=== PATIENT | male | born 1990 | race Caucasian/White ===

== ENCOUNTER 2025-03-01 08:08 | Emergency (ER) | payer OTHER, SELFPAY ==
--- OUTSIDE RECORDS SUMMARY | 2025-03-01 08:11 | XMS_ITS | Encounter Summary ---
Author Organization [facility] Address [address] [place] [address]. [place] [address] Care Team Providers Care Vice Investigator Name Role Phone Daria Lopez PA-C Primary Care Pr ovider Daria Lopez PA-C Unavailable Yina Gonzalez MD Unavailable Francheska Romero NP Primary Care Provider Francheska Villa NP Unavailable Unavailable Daria Lopez PA-C Unavailable Daria Lopez PA-C Primary Care Pr ovider Encounter Details Date Type Department Care Team (Late st Contact Info) Description 02/22/2022 Telephone [facility] [address] [place] [address] Daria Lopez PA-C [address] [place] [address] Social History Tobacco Use Types Packs/Day Years Used Date Smoking Tobacco: Former Cigarettes 0.3 2 2 019 - 2020 Smokeless Tobacco: Current Comments:2 cig a day Alcohol Use Standard Drinks/Week Comments Yes 0 (1 standard drink = 0.6 oz pure alcohol) one or two drinks 3-4 times per week Social Connection and Isolation Panel [NHANES] A nswer Date Recorded Frequency of Communication with Friends and Fami ly Not on file 12/29/2024 How often do you get together with friends or re latives? Once a week 12/29/2024 Attends [employer] Services Not on file 12/29 Active Member of Clubs or Organizations Not on f ile 12/29/2024 Attends Club or Organization Meetings Not on helen e 12/29/2024 Marital Status Not on file 12/29/2024 AUDIT-C Answer Date Recorded Q1: How often do you have a drink containing alc ohol? Monthly or less 08/02/2022 Q2: How many drinks containi ng alcohol do you have on a typical day when you are drinking? Patient declined 08/02/2022 Q3: How often do you have si x or more drinks on one occasion? Never 08/02/2022 PHQ-2 Answer Date Recorded PHQ-2 Score 0 12/29/2024 [facility] - Occupational Stress Questionnaire Answer Date Recorded Do you feel stress - tense, restless, nervous, or anxious, or unable to sleep at night because your mind is troubled all the time - these days? Only a little 12/29/2024 Exercise Vital Sign Answer Date Recorde d On average, how many days pe r week do you engage in moderate to strenuous exercise (like a brisk walk)? 2 days 12/29/2024 On average, how many minutes do you engage in exercise at this level? 20 min 12/29/2024 Adolescent Education Answer Date Record ed Getting School Help Needed Not on file 08/24 Food Insecurity Answer Date Recorded Within the past 12 months, d id you worry that your food would run out before you got money to buy more? No 12/29/2024 Within the past 12 months, d id the food you bought just not last and you didn t have money to get more? No 12/29/2024 Housing Stability Answer Date Recorded Do you have housing? (Housin g is defined as stable permanent housing and does not include staying ouside in a car, in a tent, in an abandoned building, in an overnight skilled nursing, or couch-surfing.) No 12/29/2024 Are you worried about losing your housing? No 12/29/2024 Financial Resource Strain Answer Date R ecorded Within the past 12 months, h ave you or your family members you live with been unable to get utilities (heat, electricity) when it was really needed? No 12/29/2024 Transportation Needs Answer Date Record ed Within the past 12 months, h as lack of transportation kept you from medical appointments, getting your medicines, non-medical meetings or appointments, work, or from getting things that you need? No 12/29/2024 Interpersonal Safety Answer Date Record ed Do you feel physically and e motionally safe where you currently live? Yes 12/29/2024 Within the past 12 months, h ave you been hit, slapped, kicked or otherwise physically hurt by someone? No 12/29/2024 Within the past 12 months, h ave you been humiliated or emotionally abused in other ways by your partner or ex-partner? No 12/29/2024 Sex and Gender Information Value Date Recorded Sex Assigned at Male 02/26/2022 3:34 PM CDT Legal Sex Male 3:15 AM JEWELRY CASTING MODEL MAKER Gender Identity Male 02/26/2022 3:34 PM CDT Sexual Orientation Straight 02/26/2022 3: 34 PM CDT COVID-19 Exposure Response Date Recorded In the last 10 days, have yo u been in contact with someone who was confirmed or suspected to have Coronavirus/COVID-19? No / Unsure 07/24/2023 7:53 AM CDT documented as of this encounter Plan of Treatment Upcoming Encounters Date Type Department Care Team (Late st Contact Info) Description 03/29/2025 10:30 AM CDT Office Visit [facility] [id number] [place] [phone] Daria Lopez PA-C [address] [place] [address] documented as of this encounter Visit Diagnoses Not on filedocumented in this encounter Care Teams Vice Investigator Relationship Specialty Start Date End Date Daria Lopez PA-C [address] [place] [address] PCP - General Physician Metalizing Machine Operator 06/13/14 11/30/23 Francheska Romero NP [address] [place] [address] PCP - General 12/01/23 02/26/24 Daria Lopez PA-C [address] [place] [address] PCP - General 09/21/24 Daria Lopez PA-C [address] [place] [address] Assigned PCP 07/13/17 01/01/24 Yina Gonzalez MD [address] [place] [address] Assigned Gastroenterology Provider 03/24/22 09/19/23 Francheska Romero NP Assigned PCP 01/02/24 03/01/24 Daria Lopez PA-C [address] [place] [address] Assigned PCP 03/02/24 documented as of this encounter
--- OUTSIDE RECORDS SUMMARY | 2025-03-01 08:11 | XMS_ITS | Clinical Summary ---
Author Organization [facility] Address [address] [place] [address] Care Team Providers Care Bicycle Taxi Driver Name Role Phone Daria Lopez PA-C Unavailable Daria Lopez PA-C Primary Care Pr ovider Allergies Active Allergy Reactions Criticality Noted Date Comments No Known Drug Allergy 10/14/2005 Medications amphetamine-dextro amphetamine (ADDERALL) 10 MG tabletIndications: Attention deficit hyperactivity disorder (ADHD), predominantly inattentive type Take 1 tablet (10 mg) by mouth 2 times daily 60 tablet 4 Active amphetamine-dextro amphetamine (ADDERALL) 10 MG tabletIndications: Attention deficit hyperactivity disorder (ADHD), predominantly inattentive type Take 1 tablet (10 mg) by mouth 2 times daily. 60 tablet 4 Active amphetamine-dextro amphetamine (ADDERALL) 10 MG tabletIndications: Attention deficit hyperactivity disorder (ADHD), predominantly inattentive type Take 1 tablet (10 mg) by mouth 2 times daily. 60 tablet 5 03/29/20 25 Active amphetamine-dextro amphetamine (ADDERALL) 10 MG tabletIndications: Attention deficit hyperactivity disorder (ADHD), predominantly inattentive type Take 1 tablet (10 mg) by mouth 2 times daily. 60 tablet 5 02/28/20 25 Active Problems Problem Noted Date Diagnosed Date Throat pain 03/17/2020 ADD (attention deficit disorder) 02/10/2014 Anxiety 02/13/2013 Genital warts 07/22/2008 Family history of diabetes mellitus (DM) Tobacco use disorder Resolved Problems Problem Noted Date Diagnosed Date Resolved Date Smoker 12/30/2012 03/17/2020 CARDIOVASCULAR SCREENING; LD L GOAL LESS THAN 160 09/09/2010 03/17/2020 Encounters Date Type Department Care Team Description 12/29/2024 10:30 AM BEAUTY SHOP MANAGER Office Visit [address] [phone] Daria Lopez PA-C Routine general medical examination at a health care facility (Primary Dx); Attention deficit hyperactivity disorder (ADHD), predominantly inattentive type; Essential hypertension 12/29/2024 Travel 12/28/2024 Travel from Last 3 Months Immunizations Name Administration Dates Next Due HepB 07/13/2004,12/06/2003,07/02/2001 Influenza Vaccine >6 months,quad, PF 09/12/2014 MMR (MMRII) 07/02/2001 TDAP Vaccine (Adacel) 07/07/2018,08/24/2008 Family History Medical History Relation Comments Unknown/Adopted Father Have a real fath er but don't know biological Prostate Cancer Maternal Grandfather Diabetes Maternal Grandmother Hypertension Mother Always Diabetes Other Cancer - colorectal No family hx of Relation Status Comments Brother Alive Father Other Maternal Grandfather Alive Maternal Grandmother Alive Mother Alive Other Paternal Grandfather Alive Paternal Grandmother Alive Social History Tobacco Use Types Packs/Day Years Used Date Smoking Tobacco: Former Cigarettes 0 06/29/2009 - 12/29/2020 Passive Smoke Exposure: Past Smokeless Tobacco: Never Tobacco Cessation:Counseling Given: Not Answered Alcohol Use Standard Drinks/Week Comments Not Currently 0 (1 standard drink = 0.6 oz pur e alcohol) Maybe once a month Social Connection and Isolation Panel [NHANES] A nswer Date Recorded Frequency of Communication with Friends and Fami ly Not on file 12/29/2024 How often do you get together with friends or re latives? Once a week 12/29/2024 Attends [employer] Services Not on file 12/29 Active Member [...] Answer Date Recorded PHQ-2 Score 0 12/29/2024 [facility] - Occupational [...] Answer Date Recorded Do you have housing? (Linda g is defined as stable permanent housing and does not include staying ouside in a car, in a tent, in an abandoned building, in an overnight alf, or couch-surfing.) No 12/29/2024 Are you worried [...] PM CDT Legal Sex Male 3:15 AM BEAUTY SHOP MANAGER Gender Identity Male 02/26/2022 3:34 PM CDT Sexual Orientation Straight 02/26/2022 3: 34 PM CDT Last Filed Vital Signs Vital Sign Reading Time Taken Comments Blood Pressure 125/78 12/29/2024 10:19 AM BEAUTY SHOP MANAGER Pulse 108 12/29/2024 10:05 AM BEAUTY SHOP MANAGER Temperature 36.6 C (97.9 F) 12/29/2024 10:05 AM BEAUTY SHOP MANAGER Respiratory Rate 12 12/29/2024 10:05 AM BEAUTY SHOP MANAGER Oxygen Saturation 99% 12/29/2024 10:05 AM BEAUTY SHOP MANAGER Inhaled Oxygen Concentration - - Weight 70.8 kg (156 lb) 12/29/2024 10:05 AM BEAUTY SHOP MANAGER Height 181.6 cm (5' 11.5) 12/29/2024 10:05 AM Zohreh POSEY Body Mass Index 21.45 12/29/2024 10:05 AM BEAUTY SHOP MANAGER Plan of Treatment Upcoming Encounters Date Type Department Care Team (Late st Contact Info) Description 03/29/2025 10:30 AM CDT Office Visit [facility] [id number] [place] [phone] Daria Lopez PA-C [address] [place] [address] Health Maintenance Due Date Last Done Comments COVID-19 Vaccine ( season) 2024 ANNUAL REVIEW OF HM ORDERS 12/29/202512/29, 07/24/2023, 08/02/2022, Additional history exists BMP 12/29/2025 12/29/2024, 07/11, 08/02/2022, Additional history exists YEARLY PREVENTIVE VISIT 12/29/2025 12/29/19 25, 07/24/2023, 08/02/2022, Additional history exists DIABETES SCREENING 12/29/2027 12/29/2024, 0 07/24/2023, 08/02/2022, Additional history exists DTAP/TDAP/TD IMMUNIZATION (3 - Td or Tdap) 07/07/2028 07/07/2018, 08/24/2008 ADVANCE CARE PLANNING 12/29/2029 12/29/2024, 022 ZOSTER IMMUNIZATION (1 of 2) 2038 HEPATITIS B IMMUNIZATION Completed 004, 12/06/2003, 07/02/2001 HIV SCREENING Completed 02/10/2014, 06/11/2008 INFLUENZA VACCINE Discontinued 09/12/2014 HEPATITIS C SCREENING Completed 02/26/2022, 014 PHQ-2 (once per calendar year) Completed 12/29/2024, 12/08/2023, 07/24/2023, Additional history exists HPV IMMUNIZATION Aged Out No longer e ligible based on patient's age to complete this topic MENINGITIS IMMUNIZATION Aged Out No l onger eligible based on patient's age to complete this topic Pneumococcal Vaccine: Pediatrics (0 to 5 Years) and At-Risk Patients (6 to 49 Years) Aged Out No longer eligible based on patient's age to complete this topic Procedures Procedure Name Priority Date/Time Associated Diagnosis Comments CBC WITH PLATELETS Routine 12/29/2024 10 :42 AM BEAUTY SHOP MANAGER Essential hypertension TSH WITH FREE T4 REFLEX Routine 12/29/2024 10:42 AM BEAUTY SHOP MANAGER Essential hypertension COMPREHENSIVE METABOLIC PANEL Routine 12/29/2024 10:42 AM BEAUTY SHOP MANAGER Essential hypertension LIPID PROFILE Routine 12/29/2024 10:42 AM BEAUTY SHOP MANAGER Essential hypertension HEPATITIS C RNA, QUANTITATIVE BY PCR Routine 02/26/2022 1:26 PM CDT Elevated liver enzymes HIV ANTIGEN ANTIBODY COMBO Routine 02/10/2014 8:05 AM CDT Screening examination for unspecified infectious disease from Last 3 Months or Most Recently Relevant to Health Maintenance Results * TSH with free T4 reflex (12/29/2024 10:42 AM BEAUTY SHOP MANAGER) TSH 1.77 0.30 - 4.20 uIU/mL 12/29/2024 8:29 PM BEAUTY SHOP MANAGER [facility] Blood BLOOD SPECIMEN / Unknown Venipuncture / Unknown 12/29/2024 10:42 AM BEAUTY SHOP MANAGER 12/29/2024 10:42 AM BEAUTY SHOP MANAGER us Daria Lopez PA-C LAB - BLOOD ELVINE NICO Final Result [facility] [address] [facility], [address] [phone] * (ABNORMAL) Lipid Profile (12/29/2024 10:42 AM BEAUTY SHOP MANAGER) Cholesterol 180 <200 mg/dL 12/29/2024 8:29 PM BEAUTY SHOP MANAGER [facility] Triglycerides 62 <150 mg/dL 12/29/2024 8:29 PM BEAUTY SHOP MANAGER [facility] Direct Measure HDL 68 >=40 mg/dL 12/29/2024 8:29 PM BEAUTY SHOP MANAGER [facility] LDL Cholesterol Calculated 100(H) <100 mg/dL 12/29/2024 8:29 PM BEAUTY SHOP MANAGER [facility] Non HDL Cholesterol 112 <130 mg/dL 12/29/2024 8:29 PM BEAUTY SHOP MANAGER [facility] Patient Fasting > 8hrs? Yes 12/29/2024 8:29 PM BEAUTY SHOP MANAGER [facility] Blood BLOOD SPECIMEN / Unknown Venipuncture / Unknown 12/29/2024 10:42 AM BEAUTY SHOP MANAGER 12/29/2024 10:42 AM BEAUTY SHOP MANAGER Narrative [facility] - 12/29/2024 8:29 PM BEAUTY SHOP MANAGER Cholesterol Desirable: < 200 mg/dL Borderline High: 200 - 239 mg/dL High: >= 240 mg/dL Triglycerides Normal: < 150 mg/dL Borderline High: 150 - 199 mg/dL High: 200-499 mg/dL Very High: >= 500 mg/dL Direct Measure HDL Female: >= 50 mg/dL Male: >= 40 mg/dL LDL Cholesterol Desirable: < 100 mg/dL Above Desirable: 100 - 129 mg/dL Borderline High: 130 - 159 mg/dL High: 160 - 189 mg/dL Very High: >= 190 mg/dL Non HDL Cholesterol Desirable: < 130 mg/dL Above Desirable: 130 - 159 mg/dL Borderline High: 160 - 189 mg/dL High: 190 - 219 mg/dL Very High: >= 220 mg/dL Daria Lopez PA-C LAB - BLOOD SEGUNDO WALSH Final Result [facility] [facility] [address] [facility], [address] [phone] * (ABNORMAL) Comprehensive metabolic panel (12/29/2024 10:42 AM BEAUTY SHOP MANAGER) Sodium 138 135 - 145 mmol/L 12/29/2024 8:29 PM BEAUTY SHOP MANAGER [facility] Potassium 4.0 3.4 - 5.3 mmol/L 12/29/2024 8:29 PM BEAUTY SHOP MANAGER [facility] Carbon Dioxide (CO2) 24 22 - 29 mmol/L 12/29/2024 8:29 PM BEAUTY SHOP MANAGER [facility] Anion Gap 13 7 - 15 mmol/L 12/29/2024 8:29 PM BEAUTY SHOP MANAGER [facility] Urea Nitrogen 16.8 6.0 - 20.0 mg/dL 12/29/2024 8:29 PM BEAUTY SHOP MANAGER [facility] Creatinine 0.88 0.67 - 1.17 mg/dL 12/29/2024 8:29 PM BEAUTY SHOP MANAGER [facility] GFR Estimate >90 >60 mL/min/1.7 3m2 12/29/2024 8:29 PM BEAUTY SHOP MANAGER [facility] Comment:eGFR calculated usin 2020 CKD-EPI equation. Calcium 9.5 8.8 - 10.4 mg/dL 12/29/2024 8:29 PM BEAUTY SHOP MANAGER [facility] Chloride 101 98 - 107 mmol/L 12/29/2024 8:29 PM BEAUTY SHOP MANAGER [facility] Glucose 95 70 - 99 mg/dL 12/29/2024 8:29 PM BEAUTY SHOP MANAGER [facility] Alkaline Phosphatase 35(L) 40 - 150 U/L 12/29/2024 8:29 PM BEAUTY SHOP MANAGER [facility] AST 24 0 - 45 U/L 12/29/2024 8:29 PM BEAUTY SHOP MANAGER [facility] ALT 16 0 - 70 U/L 12/29/2024 8:29 PM BEAUTY SHOP MANAGER [facility] Protein Total 7.0 6.4 - 8.3 g/dL 12/29/2024 8:29 PM BEAUTY SHOP MANAGER [facility] Albumin 4.6 3.5 - 5.2 g/dL 12/29/2024 8:29 PM BEAUTY SHOP MANAGER [facility] Bilirubin Total 0.6 <=1.2 mg/dL 12/29/2024 8:29 PM BEAUTY SHOP MANAGER [facility] Patient Fasting > 8hrs? Yes 12/29/2024 8:29 PM BEAUTY SHOP MANAGER [facility] Blood BLOOD SPECIMEN / Unknown Venipuncture / Unknown 12/29/2024 10:42 AM BEAUTY SHOP MANAGER 12/29/2024 10:42 AM BEAUTY SHOP MANAGER us Daria Lopez PA-C LAB - BLOOD ORDE NICO Final Result [facility] [place] [facility] [address] [facility], [address] [phone] * CBC with platelets (12/29/2024 10:42 AM BEAUTY SHOP MANAGER) WBC Count 5.1 4.0 - 11.0 10e3/uL 12/29/2024 10:44 AM BEAUTY SHOP MANAGER [facility] RBC Count 4.74 4.40 - 5.90 10e6/uL 12/29/2024 10:44 AM BEAUTY SHOP MANAGER [facility] Hemoglobin 14.8 13.3 - 17.7 g/dL 12/29/2024 10:44 AM BEAUTY SHOP MANAGER [facility] Hematocrit 42.9 40.0 - 53.0 % 12/29/2024 10:44 AM BEAUTY SHOP MANAGER [facility] MCV 91 78 - 100 fL 12/29/2024 10:44 AM BEAUTY SHOP MANAGER [facility] MCH 31.2 26.5 - 33.0 pg 12/29/2024 10:44 AM BEAUTY SHOP MANAGER [facility] MCHC 34.5 31.5 - 36.5 g/dL 12/29/2024 10:44 AM BEAUTY SHOP MANAGER [facility] RDW 11.7 10.0 - 15.0 % 12/29/2024 10:44 AM BEAUTY SHOP MANAGER [facility] Platelet Count 188 150 - 450 10e3/uL 12/29/2024 10:44 AM BEAUTY SHOP MANAGER [facility] Blood BLOOD SPECIMEN / Unknown Venipuncture / Unknown 12/29/2024 10:42 AM BEAUTY SHOP MANAGER 12/29/2024 10:42 AM BEAUTY SHOP MANAGER us Daria Lopez PA-C LAB - BLOOD ORDE RABEZ Final Result [facility] [address] [facility] (no room number, 1st floor of clinic) [place] [address], [facility] * Hepatitis C RNA, quantitative (02/26/2022 1:26 PM CDT) Pathologist [facility] Hepatitis C RNA IU/mL Not Detected Not Detected IU/mL 02/27/2022 9:40 PM CDT [facility] Blood STRUCTURE OF RIGHT UPPER LIMB / Unknown Venipuncture / Unknown 02/26/2022 1:26 PM CDT 02/26/2022 1:34 PM CDT Narrative [facility] - 02/27/2022 9:40 PM CDT The GRACIA AmpliPrep/GRACIA TaqMan HCV test is a FDA-approved in vitro nucleic acid amplification test for the quantitation of HCV DNA in human plasma (EDTA plasma) or serum using the GRACIA AmpliPrep instrument for automated viral nucleic acid extraction and the GRACIA TaqMan for the automated real-time PCR amplification and detection of viral nucleic acid target. Titer results are reported in International Units/mL (IU/mL) using the 1st WHO International standard for HBV for nucleic acid amplification assays. us Daria Lopez PA-C LAB - BLOOD ORDE RABEZ Final Result [facility] [address] [facility], [address] [place] [address], [facility] [phone] * HIV Antigen Antibody Combo (02/10/2014 8:05 AM CDT) HIV Antigen Antibody Combo Nonreactive HIV-1 p24 Ag & HIV-1/HIV-2 Ab Not Detected NR [facility] Blood specimen (specimen) 02/10/2014 8:05 AM CDT 02/10/2014 12:25 PM CDT us Jarret Snyder MD LAB - BLOOD ORDERABLES Final Result [facility] [address] [place] [address] from Last 3 Months or Most Recently Relevant to Health Maintenance Insurance [employer] Care Teams Bicycle Taxi Driver Relationship Specialty Start Date End Date Daria Lopez PA-C [address] [place], [place] [phone] PCP - General 09/21/24 Daria Lopez PA-C [address] [place], [place] [phone] Assigned PCP 03/02/24
--- OUTSIDE RECORDS SUMMARY | 2025-03-01 08:11 | XMS_ITS | Encounter Summary ---
Author Organization [facility] Address [address] [place] [address] Care Team Providers Care Check Processor Name Role Phone Daria Lopez PA-C Primary Care Pr ovider Daria Lopez PA-C Unavailable Daria Lopez PA-C Unavailable Yina Gonzalez MD Unavailable Francheska Romero NP Primary Care Provider Francheska Villa NP Unavailable Unavailable Daria Lopez PA-C Unavailable Daria Lopez PA-C Primary Care Pr ovider Reason for Visit * Reason Onset Date Comments Refill Request 09/30/2018 amphetamine-dext roamphetamine (ADDERALL) 10 MG per tablet Encounter Details Date Type Department Care Team (Late st Contact Info) Description 09/30/2018 [facility] [address] [place] [address] Daria Lopez PA-C [address] [place] [address] Refill Request (amphetamine-dextroamphe tamine (ADDERALL) 10 MG per tablet) Social History Tobacco Use Types Packs/Day Years Used Date Smoking Tobacco: Some Days Cigarettes Smokeless Tobacco: Current Comments:2 cig a day Alcohol Use Standard Drinks/Week Comments Yes 0 (1 standard drink = 0.6 oz pure alcohol) one or two drinks 3-4 times per week Sex and Gender Information Value Date Recorded Sex Assigned at Male 02/26/2022 3:34 PM CDT Legal Sex Male 3:15 AM WILDLIFE CONSERVATION PROFESSOR Gender Identity Male 02/26/2022 3:34 PM CDT Sexual Orientation Straight 02/26/2022 3: 34 PM CDT documented as of this encounter Miscellaneous Notes * Telephone Encounter - Melia Adame CMA - 10/02/2018 8:35 AM WILDLIFE CONSERVATION PROFESSOR Left message on phone - rx is ready for pickup Melia Adame CMA LIFE CONSERVATION PROFESSOR * Telephone Encounter - Anahi Sloan RN - 09/30/2018 3:33 PM CST RX monitoring program ([place]) reviewed: OUTBOARD MOTORBOAT RIGGER reviewed- no concerns Pt filled 30 day supply on 09/14/18 [place] profile: [email or web address] LIFE CONSERVATION PROFESSOR * Telephone Encounter - Susy Villa - 09/30/2018 3:21 PM CST Controlled Substance Refill Request for amphetamine-dextroamphetamine (ADDERALL) 10 MG per tablet Problem List Complete: No PROVIDER TO CONSIDER COMPLETION OF PROBLEM LIST AND OVERVIEW/CONTROLLED SUBSTANCE AGREEMENT Last Written Prescription Date: 07/07/18 Last Fill Quantity: 90 tablet, # refills: 3 [place] [facility] [place] [facility] [place]: 07/07/18* Future Office visit: Controlled substance agreement on file: No. Processing: Patient will fiber picker in clinic OUTBOARD MOTORBOAT RIGGER checked in past 3 months? No, route to YARA Villa Outsole Cementer LIFE CONSERVATION PROFESSOR * Telephone Encounter - DayronAvel - 09/30/2018 3:07 PM CST Reason for call: Medication If this is a refill request, has the caller requested the refill from the pharmacy already? No Will the patient be using a [facility]? [facility] of the pharmacy and phone number for the current request: Patient picking up prescription Name of the medication requested: amphetamine-dextroamphetamine (ADDERALL) 10 MG per tablet Other request: Patient states he usually gets a 3 month supply. Will need as soon as possible. Please call when ready for fiber picker. Thanks! Phone number to reach patient: Home number on file [phone] (home) Best Time: anytime Can we leave a detailed message on this number? YES LIFE CONSERVATION PROFESSOR documented in this encounter Plan of Treatment Upcoming Encounters Date Type Department Care Team (Late st Contact Info) Description 03/29/2025 10:30 AM CDT Office Visit [address] [phone] Daria Lopez PA-C [address] [place] [address] documented as of this encounter Visit Diagnoses Diagnosis Attention deficit disorder, unspecified hyperactivity presence documented in this encounter Care Teams Check Processor Relationship Specialty Start Date End Date Daria Lopez PA-C [address] [place] [address] PCP - General Physician Cement Finishing Supervisor 06/13/14 11/30/23 Daria Lopez PA-C [address] [place] [address] PCP - Assigned PCP 07/13/17 01/12/19 Francheska Romero NP [address] [place] [address] PCP - General 12/01/23 02/26/24 Daria Lopez PA-C [address] [place] [address] PCP - General 09/21/24 Daria Lopez PA-C [address] [place] [address] Assigned PCP 07/13/17 01/01/24 Yina Gonzalez MD [address] [place] [address] Assigned Gastroenterology Provider 03/24/22 09/19/23 Francheska Romero NP Assigned PCP 01/02/24 03/01/24 Daria Lopez PA-C [address] [place] [address] Assigned PCP 03/02/24 documented as of this encounter
--- OUTSIDE RECORDS SUMMARY | 2025-03-01 08:11 | XMS_ITS | Encounter Summary ---
Author Organization [facility] Address [address] [place] [address]. [place] [address] Care Team Providers Care Supervisor Personnel Clerks Name Role Phone Daria Lopez PA-C Primary Care Pr ovider Daria Lopez PA-C Unavailable Yina Gonzalez MD Unavailable Francheska Romero NP Primary Care Provider Francheska Villa NP Unavailable Unavailable Daria Lopez PA-C Unavailable Daria Lopez PA-C Primary Care Pr ovider Reason for Visit * Reason Comments Medication Refill Encounter Details Date Type Department Care Team (Late st Contact Info) Description 08/20/2021 Refill [facility] [address] [place] [address] Daria Lopez PA-C [address] [place] [address] Medication Refill Social History Tobacco Use Types Packs/Day Years Used Date Smoking Tobacco: Some Days Cigarettes 0.3 2 Smokeless Tobacco: Current Comments:2 cig a day Alcohol Use Standard Drinks/Week Comments Yes 0 (1 standard drink = 0.6 oz pure alcohol) one or two drinks 3-4 times per week PHQ-2 Answer Date Recorded PHQ-2 Score 1 04/04/2021 Sex and Gender Information Value Date Recorded Sex Assigned at Male 02/26/2022 3:34 PM CDT Legal Sex 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 Sindhu Faust RN documented in this encounter Plan of Treatment Upcoming Encounters Date Type Department Care Team (Late st Contact Info) Description 03/29/2025 10:30 AM CDT Office Visit [facility] [id number] [place] [phone] Daria Lopez PA-C [address] [place] [address] documented as of this encounter Visit Diagnoses Diagnosis Attention deficit disorder, unspecified hyperactivity presence documented in this encounter Care Teams Supervisor Personnel Clerks Relationship Specialty Start Date End Date Daria Lopez PA-C [address] [place] [address] PCP - General Physician Cleaner Furniture 06/13/14 11/30/23 Francheska Romero NP [address] [place] [address] PCP - General 12/01/23 02/26/24 Daria Lopez PA-C [address] [place] [address] PCP - General 09/21/24 Daria Lopez PA-C [address] [place] [address] Assigned PCP 07/13/17 01/01/24 Yina Gonzalez MD [address] [place] [address] Assigned Gastroenterology Provider 03/24/22 09/19/23 Francheska Romero NP Assigned PCP 01/02/24 03/01/24 Daria Lopez PA-C [address] [place] [address] Assigned PCP 03/02/24 documented as of this encounter
--- OUTSIDE RECORDS SUMMARY | 2025-03-01 08:11 | XMS_ITS | Encounter Summary ---
Author Organization [facility] Address [address] [place] [address]. [place] [address] Care Team Providers Care Hat Forming Machine Operator Name Role Phone Daria Lopez PA-C Primary Care Pr ovider Daria Lopez PA-C Unavailable Yina Gonzalez MD Unavailable Francheska Romero NP Primary Care Provider Francheska Villa NP Unavailable Unavailable Daria Lopez PA-C Unavailable Daria Lopez PA-C Primary Care Pr ovider Encounter Details Date Type Department Care Team (Late st Contact Info) Description 02/27/2022 MyC Medical Advice [facility] [address] [place] [address] Daria Lopez PA-C [address] [place] [address] Social History Tobacco Use Types Packs/Day Years Used Date Smoking Tobacco: Former Cigarettes 0.3 2 2 019 - 2020 Smokeless Tobacco: Current Comments:2 cig a day Alcohol Use Standard Drinks/Week Comments Yes 0 (1 standard drink = 0.6 oz pure alcohol) one or two drinks 3-4 times per week PHQ-2 Answer Date Recorded PHQ-2 Score 2 02/26/2022 Sex and Gender Information Value Date Recorded Sex Assigned at Male 02/26/2022 3:34 PM CDT Legal Sex Male 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 No / Unsure 02/26/2022 12:30 PM CDT documented as of this encounter Plan of Treatment Upcoming Encounters Date Type Department Care Team (Late st Contact Info) Description 03/29/2025 10:30 AM CDT Office Visit [facility] [id number] [place] [phone] Daria Lopez PA-C [address] [place] [address] documented as of this encounter Visit Diagnoses Not on filedocumented in this encounter Care Teams Hat Forming Machine Operator Relationship Specialty Start Date End Date Daria Lopez PA-C [address] [place] [address] PCP - General Physician Tool Crib Attendant 06/13/14 11/30/23 Francheska Romero NP [address] [place] [address] PCP - General 12/01/23 02/26/24 Daria Lopez PA-C [address] [place] [address] PCP - General 09/21/24 Daria Lopez PA-C [address] [place] [address] Assigned PCP 07/13/17 01/01/24 Yina Gonzalez MD [address] [place] [address] Assigned Gastroenterology Provider 03/24/22 09/19/23 Francheska Romero NP Assigned PCP 01/02/24 03/01/24 Daria Lopez PA-C [address] [place] [address] Assigned PCP 03/02/24 documented as of this encounter
--- OUTSIDE RECORDS SUMMARY | 2025-03-01 08:11 | XMS_ITS | Encounter Summary ---
Author Organization [facility] Address [address] [place] [address]. [place] [address] Care Team Providers Care Cotton Wringer Name Role Phone Daria Lopez PA-C Primary Care Pr ovider Daria Lopez PA-C Unavailable Yina Gonzalez MD Unavailable Francheska Romero NP Primary Care Provider Francheska Villa NP Unavailable Unavailable Daria Lopez PA-C Unavailable Daria Lopez PA-C Primary Care Pr ovider Encounter Details Date Type Department Care Team (Late st Contact Info) Description 10/10/2022 MyC Medical Advice [facility] [address] [place] [address] Daria Lopez PA-C [address] [place] [address] Social History Tobacco Use Types Packs/Day Years Used Date Smoking Tobacco: Former Cigarettes 0.3 2 2 019 - 2020 Smokeless Tobacco: Never Alcohol Use Standard Drinks/Week Comments Not Currently 0 (1 standard drink = 0.6 oz pure alcohol) None since third week of February 2022 Social Connection and Isolat ion Panel [NHANES] Answer Date Recorded In a typical week, how many times do you talk on the phone with family, friends, or neighbors? More than three times a week 08/02/2022 How often do you get togethe r with friends or relatives? Once a week 08/02/2022 How often do you attend chur or sikhism services? Never 08/02/2022 Do you belong to any clubs o r organizations such as rastafari groups, unions, fraternal or athletic groups, or school groups? No 08/02/2022 Attends Club or Organization Meetings Not on helen e 08/02/2022 Are you , , di vorced, , never , or living with a partner? Never 08/02/2022 AUDIT-C Answer Date Recorded Q1: How often do you have a drink containing alc ohol? Monthly or less 08/02/2022 Q2: How many drinks containi ng alcohol do you have on a typical day when you are drinking? Patient declined 08/02/2022 Q3: How often do you have si x or more drinks on one occasion? Never 08/02/2022 Overall Financial Resource Strain (CARDIA) Answe r Date Recorded How hard is it for you to pa y for the very basics like food, housing, medical care, and heating? Somewhat hard 08/02/2022 PHQ-2 Answer Date Recorded PHQ-2 Score 0 08/02/2022 [facility] Questionnaire Answer Date Recorded Do you feel stress - tense, restless, nervous, or anxious, or unable to sleep at night because your mind is troubled all the time - these days? To some extent 08/02/2022 Exercise Vital Sign Answer Date Recorde d On average, how many days pe r week do you engage in moderate to strenuous exercise (like a brisk walk)? 5 days 08/02/2022 On average, how many minutes do you engage in exercise at this level? 20 min 08/02/2022 Hunger Vital Sign Answer Date Recorded Within the past 12 months, y ou worried that your food would run out before you got the money to buy more. Never true Within the past 12 months, t he food you bought just didn't last and you didn't have money to get more. Patient declined PRAPARE - Transportation Answer Date Re corded In the past 12 months, has l ack of transportation kept you from medical appointments or from getting medications? No 07/12 In the past 12 months, has l ack of transportation kept you from meetings, work, or from getting things needed for daily living? No 08/02/2022 Housing Stability Vital Sign Answer Virgil e Recorded In the last 12 months, was t here a time when you were not able to pay the mortgage or rent on time? No 08/02/2022 In the last 12 months, how many places have you lived? 1 08/02/2022 In the last 12 months, was t here a time when you did not have a steady place to sleep or slept in a [place] (including now)? No 08/02/2022 Sex and Gender Information Value Date Recorded Sex Assigned at Male 02/26/2022 3:34 PM CDT Legal Sex Male 3:[address]PER[address] Gender Identity Male 02/26/2022 3:34 PM CDT Sexual Orientation Straight 02/26/2022 3: 34 PM CDT documented as of this encounter Plan of Treatment Upcoming Encounters Date Type Department Care Team (Late st Contact Info) Description 03/29/2025 10:30 AM CDT Office Visit [address] [phone] Daria Lopez PA-C [id number] [place] [address] documented as of this encounter Visit Diagnoses Not on filedocumented in this encounter Care Teams Cotton Wringer Relationship Specialty Start Date End Date Daria Lopez PA-C [address] [place], [place] [id number] PCP - General Physician Marketing Admin 06/13/14 11/30/23 Francheska Romero NP [address] [place] [address] PCP - General 12/01/23 02/26/24 Daria Lopez PA-C [address] [place] [address] PCP - General 09/21/24 Daria Lopez PA-C [address] [place] [address] Assigned PCP 07/13/17 01/01/24 Yina Gonzalez MD [address] [place] [address] Assigned Gastroenterology Provider 03/24/22 09/19/23 Francheska Romero NP Assigned PCP 01/02/24 03/01/24 Daria Lopez PA-C [address] [place] [address] Assigned PCP 03/02/24 documented as of this encounter
--- OUTSIDE RECORDS SUMMARY | 2025-03-01 08:11 | XMS_ITS | Encounter Summary ---
Author Organization [facility] Address [address] [place] [address]. [place] [address] Care Team Providers Care Door Operator Name Role Phone Daria Lopez PA-C Unavailable Daria Lopez PA-C Primary Care Pr ovider Reason for Visit * Reason Onset Date Comments MyChart Communication 10/28/2024 Encounter Details Date Type Department Care Team (Latest Contact Info) Description 10/28/2024 MyC Medical Advice [facility] [id number] [place] [phone] Daria Lopez PA-C [address] [place] [address] MyChart Communication Social History Tobacco Use Types Packs/Day Years Used Date Smoking Tobacco: Former Cigarettes 0 06/29/2009 - 12/29/2020 Passive Smoke Exposure: Past Smokeless Tobacco: Never Alcohol Use Standard Drinks/Week Comments Not Currently 0 (1 standard drink = 0.6 oz pur e alcohol) Maybe once a month Social Connection and Isolat ion Panel [NHANES] Answer Date Recorded In a typical week, how many times do you talk on the phone with family, friends, or neighbors? More than three times a week 08/02/2022 How often do you get togethe r with friends or relatives? Once a week 08/02/2022 How often do you attend chur ch or bahai services? Never 08/02/2022 Do you belong to any clubs o r organizations such as judaism groups, unions, fraternal or athletic groups, or [...] PHQ-2 Answer Date Recorded PHQ-2 Score 0 12/08/2023 [facility] - Occupational Stress Questionnaire Answer Date Recorded [...] exercise at this level? 20 min 08/02/2022 Adolescent Education Answer Date Record ed Getting School Help Needed Not on file 08/24 Food Insecurity Answer Date Recorded Within the past 12 months, d id you worry that your food would run out before you got money to buy more? No 12/08/2023 Within the past 12 months, d id the food you bought just not last and you didn t have money to get more? No 12/08/2023 Housing Stability Answer Date Recorded Do you have housing? (Housin g is defined as stable permanent housing and does not include staying ouside in a car, in a tent, in an abandoned building, in an overnight [place], or couch-surfing.) Yes 12/08/2023 Are you worried about losing your housing? No 12/08/2023 Financial Resource Strain Answer Date R ecorded Within the past 12 months, h ave you or your family members you live with been unable to get utilities (heat, electricity) when it was really needed? No 12/08/2023 Transportation Needs Answer Date Record ed Within the past 12 months, h as lack of transportation kept you from medical appointments, getting your medicines, non-medical meetings or appointments, work, or from getting things that you need? 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 [employer] Gender Identity Male 02/26/2022 3:34 PM CDT Sexual Orientation Straight 02/26/2022 3: 34 PM CDT documented as of this encounter Plan of Treatment Upcoming Encounters Date Type Department Care Team (Late st Contact Info) Description 03/29/2025 10:30 AM CDT Office Visit [address] [phone] Daria Lopez PA-C [address] [place] [address] documented as of this encounter Visit Diagnoses Not on filedocumented in this encounter Care Teams Door Operator Relationship Specialty Start Date End Date Daria Lopez PA-C [address] [place] [address] PCP - General 09/21/24 Daria Lopez PA-C [address] [place] [address] Assigned PCP 03/02/24 documented as of this encounter
[2025-03-01 08:16] VITALS: BP 165/119; PULSE 103; RESP 18; O2SAT 100; BMI 21.6
[2025-03-01 08:20] VITALS: TEMP 36.9
--- NOTE | 2025-03-01 08:40 | ED_ITS ---
HPI - Chest Pain General Date Seen: 03/01/25 Chief Complaint: Chest Pain Stated Complaint: left side discomfort on chest Time Seen by Provider: 03/01/25 08:10 Source: patient Mode of arrival: ambulatory Limitations: no limitations History of Present Illness HPI narrative: Patient is a 34-year-old male presenting to the emergency department for left- sided chest pain. Chest pain has been going on for the past week and a half. Pain seems to come and go. States he had pain right before I entered the room on his left lateral side the since resolved. Describes as dull ache that as a 3/10 at worst. Considering the pain keeps coming back he want to be evaluated to make sure it is nothing serious going on. Denies any associated shortness of breath. States patient is chest or moving his arms not cause any worsening of the pain. At 1st he was thinking might just be muscle strain. Deep breath thought make the pain work. Does states sometimes when he is exhaling he might notice the pain being a little bit worse. Has never had pain like this before. Does state he has a history of high blood pressure place not to any medications currently. Due that he was also concerned. No history of blood clots. No lower extremity swelling. Denies hemoptysis. No recent surgeries. Is not on any hormone therapy. No other concerns noted at this time. Related Data Home Medications ?Medication ?Instructions ?Recorded ?Confirmed No Known Home Medications 03/01/25 03/01/25 Allergies Allergy/AdvReac Type Severity Reaction Status Date / Time No Known Drug Allergies Allergy Verified 03/01/25 08:21 Review of Systems Status of ROS Reports: 10 or more systems reviewed and unremarkable except as noted in History and below [facility] Social History Smoking Status: Former smoker What tobacco products do you use: cigarettes How often do you have a drink containing alcohol: 2-4 times a month AUDIT-C Alcohol total score: 2 Non-prescribed substance use: denies use Exam Narrative Exam Narrative: Const: Well-nourished, Well-developed, in no distress Eyes: PERRL, no conjunctival injection, and symmetrical lids HENT: Atraumatic external nose and ears. Moist mucous membranes. Neck: Symmetric, trachea midline, No thyromegaly. CVS: RRR, No murmurs or gallops. Peripheral pulses 2+ and equal in all extremities RESP: Unlabored respiratory effort. Clear to auscultation bilaterally. GI: Nontender/Nondistended, No rebound or guarding. MSK:Extremities w/o deformity, Normal Active ROM, no reproducible chest tenderness Skin: Warm, Dry. No rashes or lesions. Neuro: Normal Muscle tone, No focal neurological deficits. Psych: Awake, Alert, & Oriented x3. Appropriate mood and affect. Const Vital Signs, click to edit/add: Vital Signs - 24 hr 03/01/25 08:16 03/01/25 08:20 03/01/25 09:06 Temperature 98.5 F Pulse Rate [Right Pulse Oximeter] 103 H 85 Respiratory Rate 18 18 Blood Pressure [Right Upper Arm] 165/119 H Pulse Oximetry 100 99 Oxygen Delivery Method Room Air Room Air 03/01/25 09:26 Temperature Pulse Rate [Right Pulse Oximeter] Respiratory Rate Blood Pressure [Right Upper Arm] 129/94 H Pulse Oximetry Oxygen Delivery Method Course Vital Signs Vital signs: Initial Vital Signs Pulse Rate 103 H 03/01/25 08:16 Pulse Rhythm Regular 03/01/25 08:16 Pulse Strength 3+ Normal 03/01/25 08:16 Respiratory Rate 18 03/01/25 08:16 Blood Pressure 165/119 H 03/01/25 08:16 Blood Pressure Mean 134 H 03/01/25 08:16 Blood Pressure Position Semi-Fowlers 03/01/25 08:16 Pulse Oximetry 100 03/01/25 08:16 Oxygen Delivery Method Room Air 03/01/25 08:16 Vital Signs Pulse Rate 103 H 03/01/25 08:16 Respiratory Rate 18 03/01/25 08:16 Blood Pressure 165/119 H 03/01/25 08:16 Pulse Oximetry 100 03/01/25 08:16 Oxygen Delivery Method Room Air 03/01/25 08:16 Temperature 98.5 F 03/01/25 08:20 Pulse Rate 85 03/01/25 09:06 Respiratory Rate 18 03/01/25 09:06 Blood Pressure 129/94 H 03/01/25 09:26 Pulse Oximetry 99 03/01/25 09:06 Oxygen Delivery Method Room Air 03/01/25 09:06 MDM - Chest Pain MDM Narrative Medical decision making narrative: Patient is a 34-year-old male presenting to the emergency department for chest pain. The differential diagnosis of chest pain is broad and includes common etiologies such as musculoskeletal strain, GERD, pneumonia, etc. More serious etiologies considered include PE, coronary artery disease, pneumothorax, aortic dissection, aortic aneurysm. Will do EKG troponin to look for signs of ACS. Due to his tachycardia cannot be perked out. D-dimer will be ordered. Chest x- ray will be ordered to look for signs pneumonia or pneumothorax. He is otherwise stable my concern for aortic dissection aortic aneurysm is low. Will also order BMP, CBC, COVID/flu/RSV, magnesium. Lab work returned showing no concerning abnormalities. His heart rate improved on its own. O2 sats within normal limits. Viral swabs are negative. Considering length of symptoms repeat troponin is not necessary. EKG shows no concerning abnormalities. Chest x-ray reviewed by myself the radiologist shows no concerning abnormalities. This time I do not know exactly was causing his symptoms but I do not see any concerning findings. He is safe for discharge. He is agreeable to this plan. Lab Data Labs: Lab Results 03/01/25 Range/Units 08:56 WBC 4.77 (4.50-11.00) K/uL RBC 4.95 (4.30-5.90) m/uL Hgb 15.4 (13.5-17.5) gm/dL Hct 45.0 (37.0-53.0) % MCV 91 (80-100) fL MCH 31 (26-34) pg MCHC 34 (32-36) gm/dL RDW Coeff of Lisette 11.8 (11.5-15.5) % Plt Count 180 (140-440) K/uL Neut % (Auto) 53.6 (42.0-72.0) % Lymph % (Auto) 33.3 (20-44) % Charles % (Auto) 11.5 H (0.0-11.0) % Eos % (Auto) 1.0 (0.0-7.0) % Baso % (Auto) 0.6 (0.0-3.0) % Neut # (Auto) 2.55 (1.7-7.0) K/uL Lymph # (Auto) 1.59 (0.90-2.90) K/uL Charles # (Auto) 0.50 (0.00-0.90) K/UL Eos # (Auto) 0.05 (0.00-0.50) K/uL Baso # (Auto) 0.03 (0.00-0.30) K/uL Abs Immat Gran (auto) 0.00 (0.00-0.30) K/uL Imm/Tot Granulo (auto) 0.0 % D-Dimer Quant (PE/DVT) < 0.27 (0.00-0.50) ug/ml Sodium 137 (135-149) mmol/L Potassium 4.7 (3.6-5.1) mmol/L Chloride 103 (96-114) mmol/L Carbon Dioxide 25 (20-32) mmol/L Anion Gap 9 (7-15) mEq/L BUN 18 (5-24) mg/dL Creatinine 0.8 (0.5-1.5) mg/dL Estimated Creat Clear 126.94 Estimated GFR 118 ml/min Glucose 103 (60-115) mg/dL Calcium 9.4 (8.4-10.6) mg/dL Magnesium 2.0 (1.5-2.6) mg/dL Troponin I < 0.01 (0.01-0.04) ng/mL SARS-CoV-2 (PCR) Negative SARS-CoV-2 (Negative) Influenza Type A (PCR) Negative PCR FLU A (Negative) Influenza Type B (PCR) Negative PCR FLU B (Negative) RSV (PCR) Negative PCR RSV (Negative) Imaging Data Chest x-ray: Attestation: I have reviewed the pertinent imaging results. Radiologist's impression: Normal heart size and vascular pattern. Some stable minimal calcified right nodes. Lungs are clear. No pneumothorax or pleural effusion. No significant change 02/27/2016 two-view chest. Dictated by Carlos Enrique Bai MD @ 03/01/2025 9:06:58 AM ECG Data Attestation: I personally reviewed and interpreted this ECG as follows: Prior ECG tracings: not available for review Interpretation: Normal sinus rhythm with a rate of 81 beats per minute, normal intervals, normal axis, no ST or T-wave abnormalities. Discharge Plan Discharge Clinical Impression: Atypical chest pain Patient Disposition: Home, Self-Care Condition: Stable Instructions: Noncardiac Chest Pain (ED) Additional Instructions: At this time I cannot say exactly what is causing chest pain but the emergent conditions have been ruled out. If symptoms persist you should follow-up with your primary care provider for further evaluation. Return to emergency department for new or worsening symptoms. Prescriptions: No Action No Known Home Medications Follow Up/Referrals: Provider,Not a Local [Primary Care Provider] - Stand Alone Forms: TAPP Info Instructions
--- NOTE | 2025-03-01 08:42 | CRLHL7_ITS ---
For Patients: As a result of the Century Cures Act, medical imaging exams and procedure reports are released immediately into your electronic medical record. You may view this report before your referring provider. If you have questions, please contact your health care provider. CHEST 2 VIEWS INDICATION: Chest pain. IMPRESSION: Normal heart size and vascular pattern. Some stable minimal calcified right nodes. Lungs are clear. No pneumothorax or pleural effusion. No significant change 02/27/2016 two-view chest. Dictated by Carlos Enrique Bai MD @ 03/01/2025 9:06:58 AM (Electronically Signed)
[2025-03-01 09:04] LABS: Basophils Absolute Auto 0.03 K/uL (0.00-0.30); Basophils Percent Auto 0.6 % (0.0-3.0); Eosinophils Absolute Auto 0.05 K/uL (0.00-0.50); Hemoglobin* 15.4 gm/dL (13.5-17.5); Lymphocytes Absolute Auto 1.59 K/uL (0.90-2.90); Lymphocytes Percent Auto 33.3 % (20-44); Mean Corpuscular HGB Conc 34 gm/dL (32-36); Mean Corpuscular Hemoglobin 31 pg (26-34); Mean Corpuscular Volume 91 fL (80-100); Monocytes Percent Auto 11.5 % (0.0-11.0); Neutrophils Absolute Auto 2.55 K/uL (1.7-7.0); Neutrophils Percent Auto 53.6 % (42.0-72.0); Platelet Count* 180 K/uL (140-440); RDW Coefficient of Variation % 11.8 % (11.5-15.5); Red Blood Count 4.95 m/uL (4.30-5.90); White Blood Count* 4.77 K/uL (4.50-11.00)
[2025-03-01 09:05] LABS: Slide Review Reflex No
[2025-03-01 09:06] VITALS: PULSE 85; RESP 18; O2SAT 99
[2025-03-01 09:15] LABS: Chloride* 103 mmol/L (96-114)
[2025-03-01 09:16] LABS: Potassium* 4.7 mmol/L (3.6-5.1); Sodium* 137 mmol/L (135-149)
[2025-03-01 09:19] LABS: Anion Gap 9 mEq/L (7-15); Blood Urea Nitrogen* 18 mg/dL (5-24); Calcium* 9.4 mg/dL (8.4-10.6); Carbon Dioxide* 25 mmol/L (20-32); Creatinine* 0.8 mg/dL (0.5-1.5); Est. Creatinine Clearance* 126.94; Estimated Glomerular Filt Rate 118 ml/min; Glucose* 103 mg/dL (60-115)
[2025-03-01 09:23] LABS: D Dimer Quantitative* < 0.27 ug/ml (0.00-0.50)
--- OUTSIDE RECORDS SUMMARY | 2025-03-01 09:25 | XMS_ITS | Encounter Summary ---
Author Organization [facility] Address [address] [place] [address]. 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 Gender Identity Male 02/26/2022 3:34 PM CDT [...] 10:30 AM CDT Office Visit [facility] [id number] [place] [phone] Daria Lopez PA-C [address] [place] [address] documented as of this encounter Visit Diagnoses Not on filedocumented in this encounter Care Teams Paver Relationship Specialty Start Date End Date Daria Lopez PA-C [address] [place] [address] PCP - General Physician Child Support Case Officer 06/13/14 11/30/23 Francheska Romero NP [address] [place] [address] PCP - General 12/01/23 02/26/24 Daria Lopez PA-C [address] [place] [address] PCP - General 09/21/24 Daria Lopez PA-C [address] [place] [address] Assigned PCP 07/13/17 01/01/24 Yina Gonzalez MD [address] [place] [address] Assigned Gastroenterology Provider 03/24/22 09/19/23 Francheska Romero NP Assigned PCP 01/02/24 03/01/24 Daria Lopez PA-C [address] [place] [address] Assigned PCP 03/02/24 documented as of this encounter
--- OUTSIDE RECORDS SUMMARY | 2025-03-01 09:25 | XMS_ITS | Encounter Summary ---
Author Organization [facility] Address [address] [place] [address] Care Team Providers Care Weed Cooking Operator Name Role Phone Daria Lopez PA-C [...] Team (Late st Contact Info) Description 09/30/2018 [facility] [address] [place] [address] Daria Lopez PA-C [address] [place] [address] Refill Request (amphetamine-dextroamphe tamine (ADDERALL) [...] PM CDT Legal Sex Male 3:15 AM MACHINE TOOL TECHNOLOGY INSTRUCTOR Gender Identity Male 02/26/2022 3:34 PM CDT Sexual Orientation Straight 02/26/2022 3: 34 PM CDT documented as of this encounter Miscellaneous Notes * Telephone Encounter - Melia Adame CMA - 10/02/2018 8:35 AM MACHINE TOOL TECHNOLOGY INSTRUCTOR Left message on phone - rx is ready for pickup Melia Adame CMA INE TOOL TECHNOLOGY INSTRUCTOR * Telephone Encounter - Anahi Sloan RN - 09/30/2018 3:33 PM CST RX monitoring program ([place]) reviewed: PUMP INSTALLER reviewed- no concerns Pt filled 30 day supply on 09/14/18 [place] profile: [email or web address] INE TOOL TECHNOLOGY INSTRUCTOR * Telephone Encounter - Susy Villa - 09/30/2018 3:21 PM CST Controlled Substance Refill Request for amphetamine-dextroamphetamine (ADDERALL) 10 MG per tablet Problem List Complete: No PROVIDER TO CONSIDER COMPLETION OF PROBLEM LIST AND OVERVIEW/CONTROLLED SUBSTANCE AGREEMENT Last Written Prescription Date: 07/07/18 Last Fill Quantity: 90 tablet, # refills: 3 Last Office Visit with [facility] primary care provider: 07/07/18* Future Office visit: Controlled substance agreement on file: No. Processing: Patient will fern picker in clinic PUMP INSTALLER checked in past 3 months? No, route to YARA Villa Control Room Technician INE TOOL TECHNOLOGY INSTRUCTOR * Telephone Encounter - DayronAvel - 09/30/2018 3:07 PM CST Reason for call: Medication If this is a refill request, has the caller requested the refill from the pharmacy already? No Will the patient be using a [facility]? Coulter of the pharmacy and phone number for the current request: Patient picking up prescription Name of the medication requested: amphetamine-dextroamphetamine (ADDERALL) 10 MG per tablet Other request: Patient states he usually gets a 3 month supply. Will need as soon as possible. Please call when ready for fern picker. Thanks! Phone number to reach patient: Home number on file [phone] (home) Best Time: anytime Can we leave a detailed message on this number? YES INE TOOL TECHNOLOGY INSTRUCTOR documented in this encounter Plan of Treatment Upcoming Encounters Date Type Department Care Team (Late st Contact Info) Description 03/29/2025 10:30 AM CDT Office Visit [address] [phone] Daria Lopez PA-C [address] [place] [address] documented as of this encounter Visit Diagnoses Diagnosis Attention deficit disorder, unspecified hyperactivity presence documented in this encounter Care Teams Weed Cooking Operator Relationship Specialty Start Date End Date Daria Lopez PA-C [address] [place] [address] PCP - General Physician Talent Partner 06/13/14 11/30/23 Daria Lopez PA-C [address] [place] [address] PCP - Assigned PCP 07/13/17 01/12/19 Francheska Romero NP [address] [place] [address] PCP - General 12/01/23 02/26/24 Daria Lopez PA-C [address] [place] [address] PCP - General 09/21/24 Daria Lopez PA-C [address] [place] [address] Assigned PCP 07/13/17 01/01/24 Yina Gonzalez MD [address] [place] [address] Assigned Gastroenterology Provider 03/24/22 09/19/23 Francheska Romero NP Assigned PCP 01/02/24 03/01/24 Daria Lopez PA-C [address] [place] [address] Assigned PCP 03/02/24 documented as of this encounter
--- OUTSIDE RECORDS SUMMARY | 2025-03-01 09:25 | XMS_ITS | Encounter Summary ---
Author Organization [facility] Address [address] [place] [address]. [place] [address] Care Team Providers Care Pattern Chain Builder Name Role Phone Daria Lopez PA-C Unavailable Daria Lopez PA-C Primary Care Pr ovider Reason for Visit * Reason Onset Date Comments MyChart Communication 10/28/2024 Encounter Details Date Type Department Care Team (Latest Contact Info) Description 10/28/2024 MyC Medical Advice [facility] [id number] [place] [phone] Daria Lopez PA-C [address] [place] [address] MyChart Communication Social History Tobacco [...] often do you attend chur ch or scientology services? Never 08/02/2022 Do you belong to any clubs o r organizations such as gnosticist groups, unions, fraternal or athletic groups, or [...] Date Recorded PHQ-2 Score 0 12/08/2023 [facility] - Occupational Stress Questionnaire Answer Date Recorded [...] in an abandoned building, in an overnight usp, or couch-surfing.) Yes 12/08/2023 Are you worried [...] PM CDT Legal Sex Male 3:15 AM BUSINESS RISK ANALYST Gender Identity Male 02/26/2022 3:34 PM CDT Sexual Orientation Straight 02/26/2022 3: 34 PM CDT documented as of this encounter Plan of Treatment Upcoming Encounters Date Type Department Care Team (Late st Contact Info) Description 03/29/2025 10:30 AM CDT Office Visit [address] [phone] Daria Lopez PA-C [address] [place] [address] documented as of this encounter Visit Diagnoses Not on filedocumented in this encounter Care Teams Pattern Chain Builder Relationship Specialty Start Date End Date Daria Lopez PA-C [address] [place] [address] PCP - General 09/21/24 Daria Lopez PA-C [address] [place] [address] Assigned PCP 03/02/24 documented as of this encounter
--- OUTSIDE RECORDS SUMMARY | 2025-03-01 09:25 | XMS_ITS | Encounter Summary ---
Author Organization [facility] Address [address] [place] [address]. [place] [address] Care Team Providers Care Account Management Specialist Name Role Phone Daria Lopez PA-C Primary Care Pr ovider Daria Lopez PA-C Unavailable Yina Gonzalez MD Unavailable Francheska Romero NP Primary Care Provider Francheska Villa NP Unavailable Unavailable Daria Lopez PA-C Unavailable Daria Lopez PA-C Primary Care Pr ovider Encounter Details Date Type Department Care Team (Late st Contact Info) Description 10/10/2022 MyC Medical Advice [facility] [address] [place] [address] Daria Lopez PA-C [address] [place] [address] Social History Tobacco Use Types [...] How often do you attend chur or confucianism services? Never 08/02/2022 Do you belong to any clubs o r organizations such as amish groups, unions, fraternal or athletic groups, or [...] Answer Date Recorded PHQ-2 Score 0 08/02/2022 [facility] - Occupational Stress Questionnaire Answer [...] place to sleep or slept in a usp (including now)? No 08/02/2022 Sex and Gender Information Value Date Recorded Sex Assigned at Male 02/26/2022 3:34 PM CDT Legal Sex Male 3:15 AM ATHLETIC MONITOR Gender Identity Male 02/26/2022 3:34 PM CDT Sexual Orientation Straight 02/26/2022 3: 34 PM CDT documented as of this encounter Plan of Treatment Upcoming Encounters Date Type Department Care Team (Late st Contact Info) Description 03/29/2025 10:30 AM CDT Office Visit [address] [phone] Daria Lopez PA-C [id number] [place] [address] documented as of this encounter Visit Diagnoses Not on filedocumented in this encounter Care Teams Account Management Specialist Relationship Specialty Start Date End Date Daria Lopez PA-C [address] [place], [place] [id number] PCP - General Physician Crown Perforator Operator 06/13/14 11/30/23 Francheska Romero NP [address] [place] [address] PCP - General 12/01/23 02/26/24 Daria Lopez PA-C [address] [place] [address] PCP - General 09/21/24 Daria Lopez PA-C [address] [place] [address] Assigned PCP 07/13/17 01/01/24 Yina Gonzalez MD [address] [place] [address] Assigned Gastroenterology Provider 03/24/22 09/19/23 Francheska Romero NP Assigned PCP 01/02/24 03/01/24 Daria Lopez PA-C [address] [place] [address] Assigned PCP 03/02/24 documented as of this encounter
--- OUTSIDE RECORDS SUMMARY | 2025-03-01 09:25 | XMS_ITS | Encounter Summary ---
Author Organization [facility] Address [address] [place] [address]. [place] [address] Care Team Providers Care Settlement Worker Name Role Phone Daria Lopez PA-C Primary Care Pr ovider Daria Lopez PA-C Unavailable Yina Gonzalez MD Unavailable Francheska Romero NP Primary Care Provider Francheska Villa NP Unavailable Unavailable Daria Lopez PA-C Unavailable Daria Lopez PA-C Primary Care Pr ovider Reason for Visit * Reason Comments Medication Refill Encounter Details Date Type Department Care Team (Late st Contact Info) Description 08/20/2021 Refill [facility] [address] [place] [address] Daria Lopez PA-C [address] [place] [address] Medication Refill Social History Tobacco [...] PM CDT Legal Sex Male 3:15 AM INWARD TOLL OPERATOR Gender Identity Male 02/26/2022 3:34 PM [...] Description 03/29/2025 10:30 AM CDT Office Visit [facility] [address] [place] [phone] Daria Lopez PA-C [address] [place] [address] documented as of this encounter Visit Diagnoses Diagnosis Attention deficit disorder, unspecified hyperactivity presence documented in this encounter Care Teams Settlement Worker Relationship Specialty Start Date End Date Daria Lopez PA-C [address] [place] [address] PCP - General Physician Family Preservation Worker 06/13/14 11/30/23 Francheska Romero NP [address] [place] [address] PCP - General 12/01/23 02/26/24 Daria Lopez PA-C [address] [place] [address] PCP - General 09/21/24 Daria Lopez PA-C [address] [place] [address] Assigned PCP 07/13/17 01/01/24 Yina Gonzalez MD [address] [place] [address] Assigned Gastroenterology Provider 03/24/22 09/19/23 Francheska Romero NP Assigned PCP 01/02/24 03/01/24 Daria Lopez PA-C [address] [place] [address] Assigned PCP 03/02/24 documented as of this encounter
--- OUTSIDE RECORDS SUMMARY | 2025-03-01 09:25 | XMS_ITS | Encounter Summary ---
Author Organization [facility] Address [address] [place] [address]. [place] [address] Care Team Providers Care Power Transmission Engineer Name Role Phone Daria Lopez PA-C Primary Care Pr ovider Daria Lopez PA-C Unavailable Yina Gonzalez MD Unavailable Francheska Romero NP Primary Care Provider Francheska Villa NP Unavailable Unavailable Daria Lopez PA-C Unavailable Daria Lopez PA-C Primary Care Pr ovider Encounter Details Date Type Department Care Team (Late st Contact Info) Description 02/22/2022 Telephone [facility] [address] [place] [address] Daria Lopez PA-C [address] [place] [address] Social History Tobacco Use Types [...] re latives? Once a week 12/29/2024 Attends Gnosticist Services Not on file 12/29 Active Member [...] Answer Date Recorded PHQ-2 Score 0 12/29/2024 [facility] - Occupational Stress [...] [facility], or couch-surfing.) No 12/29/2024 Are you worried [...] PM CDT Legal Sex Male 3:15 AM SERVICE ARCHITECT Gender Identity Male 02/26/2022 3:34 PM CDT [...] Description 03/29/2025 10:30 AM CDT Office Visit [facility] [address] [place] [phone] Daria Lopez PA-C [address] [place] [address] documented as of this encounter Visit Diagnoses Not on filedocumented in this encounter Care Teams Power Transmission Engineer Relationship Specialty Start Date End Date Daria Lopez PA-C [address] [place] [address] PCP - General Physician Linen Room Houseperson 06/13/14 11/30/23 Francheska Romero NP [address]09 [place] [address] PCP - General 12/01/23 02/26/24 Daria Lopez PA-C [address] [place] [address] PCP - General 09/21/24 Daria Lopez PA-C [address] [place] [address] Assigned PCP 07/13/17 01/01/24 Yina Gonzalez MD [address]09 [place] [address] Assigned Gastroenterology Provider 03/24/22 09/19/23 Francheska Romero NP Assigned PCP 01/02/24 03/01/24 Daria Lopez PA-C [address] [place] [address] Assigned PCP 03/02/24 documented as of this encounter
[2025-03-01 09:26] VITALS: BP 129/94
--- OUTSIDE RECORDS SUMMARY | 2025-03-01 09:26 | XMS_ITS | Clinical Summary ---
Author Organization [facility] Address [address] [place] [address] Care Team Providers Care Packing Clerk Name Role Phone Daria Lopez PA-C Unavailable [...] Department Care Team Description 12/29/2024 10:30 AM COLOR CARD MAKER Office Visit [address] [phone] Daria Lopez PA-C Routine general [...] re latives? Once a week 12/29/2024 Attends [employer] Not on file 12/29 Active Member [...] Answer Date Recorded PHQ-2 Score 0 12/29/2024 [facility] - Occupational [...] in an abandoned building, in an overnight long-term, or couch-surfing.) No 12/29/2024 Are you worried [...] PM CDT Legal Sex Male 3:15 AM COLOR CARD MAKER Gender Identity Male 02/26/2022 3:34 PM CDT Sexual Orientation Straight 02/26/2022 3: 34 PM CDT Last Filed Vital Signs Vital Sign Reading Time Taken Comments Blood Pressure 125/78 12/29/2024 10:19 AM COLOR CARD MAKER Pulse 108 12/29/2024 10:05 AM COLOR CARD MAKER Temperature 36.6 C (97.9 F) 12/29/2024 10:05 AM COLOR CARD MAKER Respiratory Rate 12 12/29/2024 10:05 AM COLOR CARD MAKER Oxygen Saturation 99% 12/29/2024 10:05 AM COLOR CARD MAKER Inhaled Oxygen Concentration - - Weight 70.8 kg (156 lb) 12/29/2024 10:05 AM COLOR CARD MAKER Height 181.6 cm (5' 11.5) 12/29/2024 10:05 AM Zohreh POSEY Body Mass Index 21.45 12/29/2024 10:05 AM COLOR CARD MAKER Plan of Treatment Upcoming Encounters Date Type Department Care Team (Late st Contact Info) Description 03/29/2025 10:30 AM CDT Office Visit [facility] [address] [place] [phone] Daria Lopez PA-C [address] [place] [address] Health Maintenance Due Date Last [...] WITH PLATELETS Routine 12/29/2024 10 :42 AM COLOR CARD MAKER Essential hypertension TSH WITH FREE T4 REFLEX Routine 12/29/2024 10:42 AM COLOR CARD MAKER Essential hypertension COMPREHENSIVE METABOLIC PANEL Routine 12/29/2024 10:42 AM COLOR CARD MAKER Essential hypertension LIPID PROFILE Routine 12/29/2024 10:42 AM COLOR CARD MAKER Essential hypertension HEPATITIS C RNA, QUANTITATIVE BY PCR Routine 02/26/2022 1:26 PM CDT Elevated liver enzymes HIV ANTIGEN ANTIBODY COMBO Routine 02/10/2014 8:05 AM CDT Screening examination for unspecified infectious disease from Last 3 Months or Most Recently Relevant to Health Maintenance Results * TSH with free T4 reflex (12/29/2024 10:42 AM COLOR CARD MAKER) TSH 1.77 0.30 - 4.20 uIU/mL 12/29/2024 8:29 PM COLOR CARD MAKER [facility] Blood BLOOD SPECIMEN / Unknown Venipuncture / Unknown 12/29/2024 10:42 AM COLOR CARD MAKER 12/29/2024 10:42 AM COLOR CARD MAKER us Daria Lopez PA-C LAB - BLOOD ELVINE NICO Final Result [facility] [address] [facility], [address] [phone] * (ABNORMAL) Lipid Profile (12/29/2024 10:42 AM COLOR CARD MAKER) Cholesterol 180 <200 mg/dL 12/29/2024 8:29 PM COLOR CARD MAKER [facility] Triglycerides 62 <150 mg/dL 12/29/2024 8:29 PM COLOR CARD MAKER [facility] Direct Measure HDL 68 >=40 mg/dL 12/29/2024 8:29 PM COLOR CARD MAKER [facility] LDL Cholesterol Calculated 100(H) <100 mg/dL 12/29/2024 8:29 PM COLOR CARD MAKER [facility] Non HDL Cholesterol 112 <130 mg/dL 12/29/2024 8:29 PM COLOR CARD MAKER [facility] Patient Fasting > 8hrs? Yes 12/29/2024 8:29 PM COLOR CARD MAKER [facility] Blood BLOOD SPECIMEN / Unknown Venipuncture / Unknown 12/29/2024 10:42 AM COLOR CARD MAKER 12/29/2024 10:42 AM COLOR CARD MAKER Narrative [facility] - 12/29/2024 8:29 PM COLOR CARD MAKER Cholesterol Desirable: < 200 mg/dL Borderline High: [...] BLOOD SEGUNDO WALSH Final Result [facility] [address] [facility], [address] [phone] * (ABNORMAL) Comprehensive metabolic panel (12/29/2024 10:42 AM COLOR CARD MAKER) Sodium 138 135 - 145 mmol/L 12/29/2024 8:29 PM COLOR CARD MAKER [facility] Potassium 4.0 3.4 - 5.3 mmol/L 12/29/2024 8:29 PM COLOR CARD MAKER [facility] Carbon Dioxide (CO2) 24 22 - 29 mmol/L 12/29/2024 8:29 PM COLOR CARD MAKER [facility] Anion Gap 13 7 - 15 mmol/L 12/29/2024 8:29 PM COLOR CARD MAKER [facility] Urea Nitrogen 16.8 6.0 - 20.0 mg/dL 12/29/2024 8:29 PM COLOR CARD MAKER [facility] Creatinine 0.88 0.67 - 1.17 mg/dL 12/29/2024 8:29 PM COLOR CARD MAKER [facility] GFR Estimate >90 >60 mL/min/1.7 3m2 12/29/2024 8:29 PM COLOR CARD MAKER [facility] Comment:eGFR calculated usin 2020 CKD-EPI equation. Calcium 9.5 8.8 - 10.4 mg/dL 12/29/2024 8:29 PM COLOR CARD MAKER [facility] Chloride 101 98 - 107 mmol/L 12/29/2024 8:29 PM COLOR CARD MAKER [facility] Glucose 95 70 - 99 mg/dL 12/29/2024 8:29 PM COLOR CARD MAKER [facility] Alkaline Phosphatase 35(L) 40 - 150 U/L 12/29/2024 8:29 PM COLOR CARD MAKER [facility] AST 24 0 - 45 U/L 12/29/2024 8:29 PM COLOR CARD MAKER [facility] ALT 16 0 - 70 U/L 12/29/2024 8:29 PM COLOR CARD MAKER [facility] Protein Total 7.0 6.4 - 8.3 g/dL 12/29/2024 8:29 PM COLOR CARD MAKER [facility] Albumin 4.6 3.5 - 5.2 g/dL 12/29/2024 8:29 PM COLOR CARD MAKER [facility] Bilirubin Total 0.6 <=1.2 mg/dL 12/29/2024 8:29 PM COLOR CARD MAKER [facility] Patient Fasting > 8hrs? Yes 12/29/2024 8:29 PM COLOR CARD MAKER [facility] Blood BLOOD SPECIMEN / Unknown Venipuncture / Unknown 12/29/2024 10:42 AM COLOR CARD MAKER 12/29/2024 10:42 AM COLOR CARD MAKER us Daria Lopez PA-C LAB - BLOOD ORDE NICO Final Result [facility] [address] [facility], [address] [phone] * CBC with platelets (12/29/2024 10:42 AM COLOR CARD MAKER) WBC Count 5.1 4.0 - 11.0 10e3/uL 12/29/2024 10:44 AM COLOR CARD MAKER [facility] RBC Count 4.74 4.40 - 5.90 10e6/uL 12/29/2024 10:44 AM COLOR CARD MAKER [facility] Hemoglobin 14.8 13.3 - 17.7 g/dL 12/29/2024 10:44 AM COLOR CARD MAKER [facility] Hematocrit 42.9 40.0 - 53.0 % 12/29/2024 10:44 AM COLOR CARD MAKER [facility] MCV 91 78 - 100 fL 12/29/2024 10:44 AM COLOR CARD MAKER [facility] MCH 31.2 26.5 - 33.0 pg 12/29/2024 10:44 AM COLOR CARD MAKER [facility] MCHC 34.5 31.5 - 36.5 g/dL 12/29/2024 10:44 AM COLOR CARD MAKER [facility] RDW 11.7 10.0 - 15.0 % 12/29/2024 10:44 AM COLOR CARD MAKER [facility] Platelet Count 188 150 - 450 10e3/uL 12/29/2024 10:44 AM COLOR CARD MAKER [facility] Blood BLOOD SPECIMEN / Unknown Venipuncture / Unknown 12/29/2024 10:42 AM COLOR CARD MAKER 12/29/2024 10:42 AM COLOR CARD MAKER us Daria Lopez PA-C LAB - BLOOD ORDE RABEZ Final Result [facility] [address] [facility] (no room number, 1st floor of clinic) [place] [address], [facility] * Hepatitis C RNA, quantitative (02/26/2022 1:26 PM CDT) Pathologist [facility] Hepatitis C RNA IU/mL Not Detected Not [...] ORDE RABEZ Final Result [facility] Inf. Diseases Diag. Lab [address] [facility], [address] [place] [address], [facility] [phone] * HIV Antigen Antibody Combo (02/10/2014 8:05 AM CDT) HIV Antigen Antibody Combo Nonreactive HIV-1 p24 Ag & HIV-1/HIV-2 Ab Not Detected NR [facility] Blood specimen (specimen) 02/10/2014 8:05 AM CDT 02/10/2014 12:25 PM CDT us Jarret Snyder MD LAB - BLOOD ORDERABLES Final Result [facility] [address] [place] [address] from Last 3 Months or Most Recently Relevant to Health Maintenance Insurance [employer] Care Teams Packing Clerk Relationship Specialty Start Date End Date Daria Lopez PA-C [address] [place], [place] [phone] PCP - General 09/21/24 Daria Lopez PA-C [address] [place], [place] [phone] Assigned PCP 03/02/24
[2025-03-01 09:32] LABS: Troponin I* < 0.01 ng/mL (0.01-0.04)
[2025-03-01 09:42] LABS: PCR FLU A Negative PCR FLU A (Negative); PCR FLU B Negative PCR FLU B (Negative); PCR RSV Negative PCR RSV (Negative); SARS PCR* Negative SARS-CoV-2 (Negative)
== END 2025-03-01 10:52 | disposition home or self-care (01) ==
PROVIDERS: Emergency Provider Student in an Organized Health Care Education/Training Program
DX: R07.89 Other chest pain (principal)
CPT/HCPCS: 36415; 71046; 80048; 83735; 84484; 85025; 85379; 87631; 93005; 99284; 99285